=== PATIENT | female | born 1980 | race Caucasian/White ===

== ENCOUNTER 2020-04-21 00:45 | Emergency (ER) | payer MEDICAID ==
[~2020-04-21] VITALS: Ht 152.4 cm; Wt 93.9 kg
[2020-04-21 00:50] VITALS: BP 119/59
--- NOTE | 2020-04-21 01:01 | NUR ---
PT AMBULATED TO BED 4 WITH STEADY GAIT
--- NOTE | 2020-04-21 01:10 | NUR ---
DR. GARCIA AT BEDSIDE.
--- NOTE | 2020-04-21 01:14 | NUR ---
EMT DOING EKG AT BEDSIDE.
--- NOTE | 2020-04-21 01:14 | NUR ---
39 Y/O F PRESENTS TO ED C/O CHEST PAIN RADIATING TO LEFT ARM SINCE 2330 LAST NIGHT. PER PT, CHEST PAIN STARTED DUE TO HAVING EMOTIONAL BREAKDOWN DUE TO FINDING OUT THE IS HAVING AN AFFAIR. DENIES NUMBNESS/N/V. RR EVEN AND UNLABORED. VSS. BED IN LOWEST POSITION. SIDE RAIL UP X1. WILL CONTINUE TO MONITOR. MHX: DENIES NKA
[2020-04-21] MEDS ORDERED: NACL 0.9% 500 ML IV ONE (01:15)
[2020-04-21] MEDS ORDERED: KETOROLAC 30 MG/ML VIAL IVP ONE (01:15)
[2020-04-21] MEDS ORDERED: ASPIRIN 81 MG TAB.CHEW PO ONE (01:15)
--- NOTE | 2020-04-21 01:18 | NUR ---
LAB AT BEDSIDE.
[2020-04-21 01:33] LABS: BASOPHILS # (AUTO) 0.1 K/uL (0.00-0.22); BASOPHILS % (AUTO) 0.5 % (0.0-2.0); EOSINOPHILS % (AUTO) 0.2 % (0.0-4.0); HEMATOCRIT 42.1 % (36-48); LYMPHOCYTES # (AUTO) 3.4 K/uL (2.5-16.5); LYMPHOCYTES % (AUTO) 30.5 % (20.5-51.1); MEAN CORPUSCULAR HEMOGLOBIN 29 pg (27-31); MEAN CORPUSCULAR HGB CONC 33 g/dL (33-37); MEAN CORPUSCULAR VOLUME 85.7 fL (80-94); MONOCYTES # (AUTO) 0.8 K/uL (0.8-1.0); MONOCYTES % (AUTO) 6.9 % (1.7-9.3); NEUTROPHILS # (AUTO) 6.9 K/uL (1.8-7.7); NEUTROPHILS % (AUTO) 61.9 % (42.2-75.2); PLATELET COUNT (AUTO) 192 K/uL (140-450); RED BLOOD CELL COUNT(AUTO) 4.91 MIL/uL (4.20-5.40); RED CELL DISTRIBUTION WIDTH 14.2 % (11.6-13.7); WHITE BLOOD COUNT (AUTO) 11.1 K/uL (4.8-10.8)
[2020-04-21 01:47] LABS: ALBUMIN 3.8 g/dL (3.4-5.0); CARBON DIOXIDE 27.2 mmol/L (21-32); CREATININE 0.9 mg/dL (0.6-1.3); POTASSIUM 4.2 mmol/L (3.5-5.1); TOTAL BILIRUBIN 0.7 mg/dL (0.0-1.0)
[2020-04-21 02:23] VITALS: BP 119/59
--- NOTE | 2020-04-23 07:45 | NUR ---
LATE ENTRY- NORMAL SALINE 0.9% BOLUS DISCONTINUED AT 0224.
== END 2020-04-21 02:23 | disposition home or self-care (01) ==
LOC: MED 00:45
DX: R07.89 Other chest pain (principal); M25.512 Pain in left shoulder; E11.9 Type 2 diabetes mellitus without complications
CPT/HCPCS: 36415; 71045; 80053; 84484; 85025; 93005; 96374; 99285; J1885; J7030; Q0092; 99284